=== PATIENT | female | born 1970 | race Two or more races ===

== ENCOUNTER 2020-05-11 04:56 | Emergency (ER) | payer OTHER | END 2020-05-11 07:21 | disposition home or self-care (01) | LOC: ED 04:56 | DX: R42 Dizziness and giddiness (principal) ==

== ENCOUNTER 2021-10-17 10:05 | Day surgery (SDC) | payer OTHER ==
[~2021-10-17] VITALS: Ht 152.4 cm; Wt 50.0 kg
--- NOTE | ~2021-10-17 | OR ---
[facility] [address] [place], [place] [address] Draft DATE OF OPERATION: 10/17/2021 SURGEON: Anshul Azul DO PREOPERATIVE DIAGNOSIS: Left complex adnexal mass. POSTOPERATIVE DIAGNOSIS: Left complex adnexal (tubal) mass. PROCEDURES PERFORMED: 1. Bilateral salpingectomy. 2. Left tubal cystectomy. PATROL MOTHER: Bam Calvin MD ANESTHESIA: General. ESTIMATED BLOOD LOSS: 5 mL. SPECIMEN: Bilateral fallopian tubes with left tube containing complex mass. FINDINGS: Normal external genitalia with normal clitoris, urethral meatus, bilateral Annetta South's, and Bartholin's. Normal vagina and cervix. The cervix is quite stenotic. On laparoscopy, normal uterus, bilateral ovaries. Mass of the left fallopian tube. This was excised intact with no spillage of mass contents. Hemostasis at the end of the procedure. COMPLICATIONS: None. INDICATIONS: Ms. Janene Barajas is a pleasant 51-year-old postmenopausal female with a complex left adnexal mass 3.4 cm with peripheral nodules noted. Serial ultrasounds were performed that demonstrated continued adnexal mass with mural nodules. Given nonresolving complex adnexal mass, recommended laparoscopic left oophorectomy with bilateral opportunistic PATIENT NAME: RUBIO MEHTA OPERATIVE REPORT DATE OF : 72 REPORT #: [id number] PHYSICIAN: ANSHUL AZUL DO PCP: ARNOLDO SERRANO MD REPORT IS CONFIDENTIAL AND NOT TO BE RELEASED WITHOUT AUTHORIZATION [facility] [address] [place], [place] [address] Draft salpingectomy as the patient is postmenopausal. Risks, benefits, and alternatives were discussed in detail with the patient. The patient understands and wished to proceed with the procedure. TECHNIQUE: The patient was taken to the operating room, where a time-out was performed to confirm correct patient, correct procedure. General anesthesia was adequately established. The patient was prepped and draped in the dorsal lithotomy position with her feet in Yellofin stirrups. ICPs were on and running and no preoperative heparin was indicated. The patient did receive Ancef 2 g preoperatively. A weighted speculum was placed in vagina after a Mejía catheter was inserted without difficulty. The cervix was grasped with an Allis clamp and gentle cervical dilation was attempted. Significant cervical stenosis was noted and decision was made to forego intrauterine manipulation unless necessitated later in the case. A sponge stick was placed in the vagina. Attention was turned to the abdomen. A 3-cm curvilinear incision was made just below the umbilicus after injection of local anesthetic. The fascia was grasped with hemostats, elevated, and the fascia was cut with Metzenbaum scissors. Stay sutures cephalad and caudad were placed with 0 Vicryl. The peritoneum was then entered bluntly and Melissa operative port was placed without difficulty. Pneumoperitoneum was established without difficulty with low opening pressures. Survey of the abdomen and pelvis was performed demonstrating normal uterus and bilateral ovaries. The left ovary was normal and complex cyst was noted in the contiguous with the left fallopian tube. Assist ports were placed in the left lower and right lower quadrant without difficulty 5 mm after the injection of local anesthetic. The left tube was grasped with the fimbriated end and divided along the mesosalpinx with careful attention to entirely excise the cystic structure intact and no spillage was noted. This was dissected down to the cornu and the fallopian tube fulgurated and divided at the cornu. The right fallopian tube was grasped at the fimbriated end and divided along the mesosalpinx. It was then divided at the cornu. The right ovary was noted to be contiguous with the uterus consistent with findings on ultrasound. The fallopian tubes were then placed in an EndoCatch bag and removed. Hemostasis was appreciated. Pneumoperitoneum was reduced. The fascia was then reapproximated using 0 Vicryl in a running nonlocked manner. Skin was reapproximated using 4-0 Monocryl in a subcuticular stitch with excellent hemostasis cosmesis. The Mejía catheter was removed. The sponge stick was removed. The patient was taken to PACU in good and stable condition. Sponge, needle, and instrument count was correct x2 at the end of procedure. Dr. Calvin was present and participated in all portions of procedure. PATIENT NAME: RUBIO MEHTA OPERATIVE REPORT DATE OF : 72 REPORT #: [id number] PHYSICIAN: ANSHUL AZUL DO PCP: ARNOLDO SERRANO MD REPORT IS CONFIDENTIAL AND NOT TO BE RELEASED WITHOUT AUTHORIZATION [address] [address] Draft Anshul Azul DO JDW/MODL /[id number] Copies: ~ PATIENT NAME: JANENE BARAJASRUBIO OPERATIVE REPORT DATE OF : 72 REPORT #: [id number] PHYSICIAN: ANSHUL AZUL DO PCP: ARNOLDO SERRANO MD REPORT IS CONFIDENTIAL AND NOT TO BE RELEASED WITHOUT AUTHORIZATION
[~2021-10-17 10:05] MED LIST: BENADRYL ALLERG25 MG PO; HYDROCODON-ACE1 EA10 PO; K-TAB ER20 MEQ PO; MECLIZINE HCL25 MG PO; PERCOCET 5-3251 EACH PO
--- NOTE | 2021-10-17 13:42 | NUR ---
10/17/21 1342 Colleen Hoffman 2184-PATIENT ARRIVED TO PACU ON 6L MASK RR EVEN NONAROUSABLE. IVF INFUSING SR. 3 LAP SITES TO ABDOMEN STERI STRIPS AND BANDAIDS CDI VIOLETA PAD CDI
--- NOTE | 2021-10-17 14:27 | NUR ---
1415: PATIENT BACK IN DAY SURGERY ROOM FROM PACU. DROWSY. RATES PAIN /10. GIVEN CRACKERS TO EAT. IV SITE WNL. SCDs ON. ABDOMEN WITH 3 TROCAR SITES WITH BANDAIDS. SMALL AMOUNT OF RED DRAINAGE ON BANDAIDS. ICE WATER PLACED AT BEDSIDE. CALL LIGHT WITHIN REACH.
[2021-10-17] MEDS ORDERED: HYDROCODON-ACE1 EA10 PO (14:40)
[2021-10-17] MEDS ORDERED: IBUPROFEN800 MG PO (14:40)
--- NOTE | 2021-10-17 15:54 | NUR ---
1520: PATIENT RATES PAIN 03/19. MEDICATED FOR PAIN WITH 1 TABLET OF PERCOCET. VS CHECKED. 1535: PATIENT ASSISTED OOB AND TO BATHROOM. GAIT STEADY TO BATHROOM. VOID WITHOUT DIFFICULTY. GAIT STEADY BACK TO ROOM. PATIENT ASSISTED BACK TO BED. UMBILICUS SITE DRAINING. UMBILICAL SITE REINFORCED WITH 4X4 GUAZE AND MEDIPORE TAPE. CALL LIGHT WITHIN REACH. AT BEDSIDE.
--- NOTE | 2021-10-17 16:33 | NUR ---
1625: WHALEN DOWN TO TALK WITH PATIENT AND . VS CHECKED. RATES PAIN 08/19. C/O SLIGHT DIZZINESS. DISCHARGE INSTRUCTIONS GIVEN TO PATIENT AND . PATIENT REQUESTS MORE TIME TO REST BEFORE GETTING DRESSED TO GO HOME. CALL LIGHT WITHIN REACH. AT BEDSIDE.
--- NOTE | 2021-10-17 17:18 | NUR ---
PATIENT IS READY TO GO HOME. DENIES DIZZINESS AT THIS TIME. ENCOURAGED PATIENT TO CHNAGE POSITIONS SLOWLY. ALL QUESTIONS ANSWERED. WHEELCHAIR RIDE PROVIDED TO FRONT OF HOSPITAL WHERE WAS WAITING WITH CAR.
--- NOTE | 2021-10-21 11:36 | PATH ---
[facility] [address] [place], [place] [address] Signed SPECIMEN(S): A BILATERAL FALLOPIAN TUBES SPECIMEN SOURCE: A. BILATERAL FALLOPIAN TUBES CLINICAL HISTORY: Left adnexal mass FINAL PATHOLOGIC DIAGNOSIS: Fallopian tubes, bilateral, salpingectomy: - One fallopian tube with a paratubal serous cystadenofibroma (1.5 cm in greatest dimension). - Second fallopian tube with no histopathologic abnormality. - No evidence of malignancy. NAL:cml:C2NR MICROSCOPIC EXAMINATION: Histologic sections of all submitted blocks are examined by light microscopy. These findings, together with the gross examination, support the pathologic diagnosis. GROSS DESCRIPTION: The specimen, labeled "MG, A," and designated on the requisition "bilateral fallopian tubes," is received in formalin and consists of two undesignated segments of red-brown fimbriated fallopian tube (5.5 cm in length and ranging in diameter from 0.5 to 1.5 cm, and 2.8 cm in length x 0.6 cm in diameter). One fallopian tube segment is arbitrarily inked blue and has a firm intact nodule/cyst (1.5 x 1.4 x 1.3 cm). The blue inked fallopian tube is serially sectioned to reveal a yellow gelatinous material within the cyst and white-delgadillo papillary excrescences. The remaining cut surface shows pink-delgadillo unremarkable fallopian tube. The other fallopian tube is sectioned to reveal a pink-delgadillo unremarkable cut surface. The fimbriae are submitted entirely. Senior Procurement Specialist sections are submitted as follows: (A1) shorter fallopian tube (A2-A4) blue inked fallopian tube with entire cyst AC (under the direct supervision of a pathologist) The Gross Description was prepared using a voice recognition system. The report was reviewed for accuracy; however, sound-alike word errors, addition and/or PATIENT NAME: RUBIO MEHTA PATHOLOGY DATE OF : 72 REPORT #: [id number] PHYSICIAN: MICHAEL PATHOLOGY PCP: ARNOLDO SERRANO MD REPORT IS CONFIDENTIAL AND NOT TO BE RELEASED WITHOUT AUTHORIZATION [facility] [address] [place], [place] [address] Signed deletions may occur. If there is any question about this report, please contact Client Services. PERFORMING LABORATORY: The technical component was performed by [facility] [address] [address] (Door Liner Helper: Phylicia Kothari MD; CLIA# [id number]). [facility], [address] [address] (CLIA# [id number]). Diagnostician: Cely Gallardo MD Pathologist Electronically Signed 10/21/2021 Copies: ~ PATIENT NAME: RUBIO MEHTA PATHOLOGY DATE OF : 72 REPORT #: [id number] PHYSICIAN: MICHAEL SORENSON PCP: ARNOLDO SERRANO MD REPORT IS CONFIDENTIAL AND NOT TO BE RELEASED WITHOUT AUTHORIZATION
== END 2021-10-17 17:10 | disposition home or self-care (01) ==
LOC: DS 10:05
PROVIDERS: ATTEND Obstetrics & Gynecology
PROC: 0UT74ZZ Resection of Bilateral Fallopian Tubes, Percutaneous Endoscopic Approach (ICD-10-PCS; principal; 2021-10-17 12:45)
PROC: 0UB64ZZ Excision of Left Fallopian Tube, Percutaneous Endoscopic Approach (ICD-10-PCS; 2021-10-17 12:45)
DX: D28.2 Benign neoplasm of uterine tubes and ligaments (principal); N88.2 Stricture and stenosis of cervix uteri
CPT/HCPCS: J0690; J1100; J1885; J2001; J2250; J2405; J2704; J7121

== ENCOUNTER 2023-01-16 10:52 | Emergency (ER) | payer OTHER ==
[~2023-01-16] VITALS: Ht 152.4 cm; Wt 49.1 kg
[~2023-01-16 10:52] MED LIST changes: +IBUPROFEN800 MG PO; +MACROBID 100 M100 MG PO
--- OUTSIDE RECORDS SUMMARY | 2023-01-16 11:00 | XMS ---
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 Riley has no Care Guidelines for this patient. [facility]12 MO.) [facility] NOTE: Visits indicate total known visits. ED/UCC VISIT TRACKING (12 MO.) [facility]16/2023 10:[facility] [place] TYPE: Emergency COMPLAINT: - ABD PAIN, FEVER, DIARRHEA 12/19/2022 19:23 [facility] [place] TYPE: Emergency COMPLAINT: - SOB,FAST HR DIAGNOSES: - Dehydration - Diarrhea, unspecified - Urinary tract infection, site not specified INPATIENT VISIT TRACKING (12 MO.) No inpatient visits to display in this time frame [email or web address]
[2023-01-16] MEDS ORDERED: VANCOCIN HCL125 MG PO (11:32)
[2023-01-16] MEDS ORDERED: ONDANSETRON ODT8 MG PO (12:59)
[2023-01-16] MEDS ORDERED: VANCOMYCIN HCL125 MG PO ×2 (12:59→13:02)
[2023-01-16] MEDS ORDERED: DIFICID200 MG PO (13:02)
[2023-01-16 13:15] VITALS: BP 112/79
== END 2023-01-16 13:16 | disposition home or self-care (01) ==
LOC: ED 10:52
DX: A04.72 Enterocolitis due to Clostridium difficile, not specified as recurrent (principal)
CPT/HCPCS: 36415; 80053; 85025; 99284; J7030

== ENCOUNTER 2023-06-04 10:31 | Day surgery (SDC) | payer OTHER ==
[~2023-06-04] VITALS: Ht 152.4 cm; Wt 48.0 kg
[~2023-06-04 10:31] MED LIST changes: +DIFICID200 MG PO; +ONDANSETRON ODT8 MG PO; +VANCOCIN HCL125 MG PO; +VANCOMYCIN HCL125 MG PO
[2023-06-04 10:41] VITALS: BP 153/99
--- NOTE | 2023-06-04 12:03 | NUR ---
06/04/23 1203 Kymberly,Su 1132 PT ARRIVED TO PACU ON 2L VIA NC, PT ASLEEP AND RESP EVEN AND UNLABORED. 1143 MD AT BEDSIDE AND PT WAKES TO TACTILE STIMULI. 1202 PT WAKES EASILY AND HOB INCREASED. PT SIPPING APPLE JUICE PER REQUEST.
[2023-06-04 12:15] VITALS: BP 109/73
--- NOTE | 2023-06-05 10:16 | OR ---
[facility] [address] [place], [place] [address] Signed DATE OF OPERATION: 06/04/2023 SURGEON: Melanie Garcia MD PREOPERATIVE DIAGNOSIS: Colon screening. POSTOPERATIVE DIAGNOSIS: Diverticulosis, left colon and sigmoid. PROCEDURE: Total colonoscopy to cecum. ANESTHESIA: Intravenous sedation fentanyl 150 mcg and Versed 5 mg. INDICATION: This is a 52-year-old woman, who is a patient of Dr. Dotson and is referred for screening colonoscopy based on her age. Notably, she did undergo colonoscopy 12 years ago for anorectal pain, which was found to be negative. She currently has no symptoms of bleeding, diarrhea or constipation and no family history of colon cancer. She was admitted to undergo screening colonoscopy, understands the risk of bleeding, infection, and perforation. FINDINGS: The prep was excellent. Complete colonoscopy was undertaken of the cecum with full intubation of the cecum. She had numerous diverticula of the sigmoid and left colon, but no evidence of polyps, colitis, or other abnormality. PROCEDURE IN DETAIL: The patient was brought to the endoscopy suite and placed in lateral decubitus position, given intravenous sedation to the point of slurred speech and nystagmus. Digital rectal examination was normal. An Olympus video colonoscope was passed in the rectum and manipulated through the sigmoid where numerous diverticula were noted. The scope was easily passed to the hepatic flexure. Abdominal wall stabilization was necessary for full passage of the scope ultimately to the cecum. Full intubation of the cecum was accomplished. The scope was withdrawn from the point of examination, showed no sign of abnormality other than the diverticulosis. Retroflexed view of the rectum was normal as well. The scope Electronically Signed By: MELANIE GARCIA MD 06/05/23 [facility] PATIENT NAME: RUBIO MEHTA OPERATIVE REPORT DATE OF : 72 REPORT #: [id number] PHYSICIAN: MELANIE GARCIA MD PCP: ARNOLDO DOTSON MD REPORT IS CONFIDENTIAL AND NOT TO BE RELEASED WITHOUT AUTHORIZATION [facility] [address] [place], [place] [address] Signed was removed. The patient was taken to the recovery room in good condition. CONCLUDING DIAGNOSIS: Sigmoid and left-sided diverticulosis. PLAN: Recommend a high-fiber diet or fiber supplement. Would recommend repeat colonoscopy in 10 years or sooner if clinically indicated. She will return to the ongoing care of Dr. Dotson. MD NIKOLAS Sepulveda/MODL /[id number] cc: Dr. Dotson Copies: ~ Electronically Signed By: MELANIE GARCIA MD 06/05/23 1016 PATIENT NAME: RUBIO MEHTA OPERATIVE REPORT DATE OF : 72 REPORT #: [id number] PHYSICIAN: MELANIE GARCIA MD PCP: ARNOLDO DOTSON MD REPORT IS CONFIDENTIAL AND NOT TO BE RELEASED WITHOUT AUTHORIZATION
== END 2023-06-04 12:30 | disposition home or self-care (01) ==
LOC: DS 10:31 → OPS 10:31 → DS 13:15
PROVIDERS: ATTEND Surgery
PROC: 0DJD8ZZ Inspection of Lower Intestinal Tract, Via Natural or Artificial Opening Endoscopic (ICD-10-PCS; principal; 2023-06-04 11:00)
DX: Z12.11 Encounter for screening for malignant neoplasm of colon (principal); K57.32 Diverticulitis of large intestine without perforation or abscess without bleeding; Z40.03 Encounter for prophylactic removal of fallopian tube(s)
CPT/HCPCS: 99153; G0500; J2250; J3010; J7121